=== PATIENT | male | born 1985 | race Two or more races ===

== ENCOUNTER 2019-03-20 21:58 | Emergency (ER) | payer SELFPAY ==
[~2019-03-20] VITALS: Ht 172.7 cm; Wt 74.0 kg
[2019-03-20 22:32] VITALS: BP 111/65
== END 2019-03-20 23:34 | disposition home or self-care (01) ==
LOC: ER 21:58
DX: R07.2 Precordial pain (principal)
CPT/HCPCS: 93005; 99283; Z7610